=== PATIENT | female | born 1985 | race Caucasian/White ===

== ENCOUNTER 2024-03-20 06:08 | Day surgery (SDC) | payer BC ==
[2024-03-18 14:27] LABS: BILIRUBIN,URINE NEGATIVE (NEGATIVE); BLOOD, URINE NEGATIVE (NEGATIVE); CLARITY/URINE CLEAR (CLEAR); COLOR,URINE YELLOW (YELLOW); GLUCOSE,URINE NEGATIVE (NEGATIVE); KETONES,URINE TRACE (NEGATIVE); LEUKOCYTE ESTERASE ,URINE NEGATIVE (NEGATIVE); NITRITE, URINE NEGATIVE (NEGATIVE); PROTEIN URINE NEGATIVE (NEGATIVE); UROBILINOGEN,URINE 0.2 (0.2-1.0)
[2024-03-18 14:41] LABS: SERUM HCG (QUALITATIVE) NEGATIVE (NEGATIVE)
[2024-03-18 14:43] LABS: BASOPHILS # (AUTO) 0.1 K/uL (0.0-0.2); BASOPHILS % (AUTO) 0.9 % (0.0-2.0); EOSINOPHILS # (AUTO) 0.1 K/uL (0.0-0.4); EOSINOPHILS % (AUTO) 1.7 % (0.0-4.0); HEMATOCRIT 35.7 % (36-48); HEMOGLOBIN 11.9 g/dL (12.0-16.0); LYMPHOCYTES # (AUTO) 3.1 K/uL (1.0-5.5); LYMPHOCYTES % (AUTO) 37.2 % (20.5-51.5); MEAN CORPUSCULAR HEMOGLOBIN 28 pg (27-31); MEAN CORPUSCULAR HGB CONC 33 % (32-36); MEAN CORPUSCULAR VOLUME 83 fL (79.0-98.0); MONOCYTES # (AUTO) 0.5 K/uL (0.0-1.0); MONOCYTES % (AUTO) 5.8 % (1.7-9.3); NEUTROPHILS # (AUTO) 4.6 K/uL (1.8-7.7); NEUTROPHILS % (AUTO) 54.4 % (40.0-70.0); PLATELET COUNT (AUTO) 300 K/uL (130-430); RED CELL DISTRIBUTION WIDTH 14.4 % (9.0-15.0); WHITE BLOOD COUNT (AUTO) 8.4 K/uL (4.8-10.8)
[2024-03-18 14:44] LABS: ALBUMIN 3.5 g/dL (3.4-4.8); CALCIUM 9.4 mg/dL (8.4-11.0); CREATININE 0.73 mg/dL (0.55-1.30); POTASSIUM 4.7 mmol/L (3.5-5.1); TOTAL BILIRUBIN 0.3 mg/dL (0.0-1.0); TOTAL PROTEIN, SERUM 7.3 g/dL (6.4-8.3)
[2024-03-18 14:48] LABS: INR 0.9 (0.8-1.2); PROTHROMBIN TIME 10.2 SECS (9.5-12.5)
[~2024-03-20] VITALS: Ht 175.3 cm; Wt 86.2 kg
[2024-03-20] MEDS ORDERED: ONDANSETRON HCL 4 MG/2 ML VIAL ONE (07:40)
[2024-03-20] MEDS ORDERED: MIDAZOLAM HCL 2 MG/2 ML VIAL (VERSED) ONE (07:40)
[2024-03-20] MEDS ORDERED: LR 1,000 ML IV.SOLN IV ONE (07:40)
[2024-03-20] MEDS ORDERED: NEOSTIGMINE METHYLSULFATE 1 MG/ML, 10 ML VIAL ONE (07:40)
[2024-03-20] MEDS ORDERED: GLYCOPYRROLATE 0.2 MG/ML VIAL ONE (07:40)
[2024-03-20] MEDS ORDERED: PROPOFOL 200MG/ 20ML VIAL (DIPRIVAN) IV ONE (07:40)
[2024-03-20] MEDS ORDERED: METOCLOPRAMIDE HCL 10 MG/2 ML VIAL ONE (07:40)
[2024-03-20] MEDS ORDERED: fentaNYL CITRATE/PF 100 MCG/2 ML AMP ONE (07:40)
[2024-03-20] MEDS ORDERED: SEVOFLURANE 15 MIN GAS INH ONE (07:40)
[2024-03-20 08:13] VITALS: O2SAT 98
[2024-03-20] MEDS ORDERED: ONDANSETRON HCL 4 MG/2 ML VIAL IVP PRN ×2 (08:15→09:15)
[2024-03-20] MEDS ORDERED: LR 1,000 ML IV SCH (08:15)
[2024-03-20] MEDS ORDERED: MEPERIDINE 50 MG/ML VIAL IVP PRN (08:15)
[2024-03-20] MEDS ORDERED: ACETAMINOPHEN I.V. 1000 MG 100 ML IV ONE (08:29)
[2024-03-20] MEDS ORDERED: ACETAMINOPHEN 500 MG TABLET PO PRN (09:15)
[2024-03-20 10:41] VITALS: BP_SYST 95; PULSE 50; RESP 18; TEMP 97.8
== END 2024-03-20 12:20 | disposition home or self-care (01) ==
LOC: SDS 06:08 → SMU 06:09 → SDS 12:20
PROVIDERS: ATTEND Obstetrics & Gynecology Gynecology
DX: N92.1 Excessive and frequent menstruation with irregular cycle (principal); D25.0 Submucous leiomyoma of uterus; N85.00 Endometrial hyperplasia, unspecified; N72 Inflammatory disease of cervix uteri; R93.89 Abnormal findings on diagnostic imaging of other specified body structures; E78.5 Hyperlipidemia, unspecified; J45.909 Unspecified asthma, uncomplicated; Z88.5 Allergy status to narcotic agent; Z88.0 Allergy status to penicillin; Z90.49 Acquired absence of other specified parts of digestive tract; Z98.891 History of uterine scar from previous surgery; Z79.899 Other long term (current) drug therapy; Z20.822 Contact with and (suspected) exposure to COVID-19
CPT/HCPCS: 87081; 93005; 71046; 80053; 81001; 84703; 85025; 85610; 85730; 86886; 86900; 86901; 36415 ×2; 81003; 58561; 88305; 87426; J3490; J2765; J3465; J2405; J2704; J3010; J7120; C1819; J0131; J2710